=== PATIENT | female | born 1950 | race Caucasian/White ===

== ENCOUNTER → 2017-02-07 | Outpatient (CLI) | payer BC ==
[~2017-02-07] MED LIST: ADVIN25/60 INH; ANTICRE6 PO; CALC-51 PO; FLUT0.15 NAE; MELO7.5T5 PO; MONT1TAB5 PO; OXYC-57 PO; PRAV20TA PO; PREDPOW63 PO; PRLSR20 PO
--- NOTE | 2017-02-07 12:49 | DIAGNOSTIC IMAGING REPORT ---
CT SINUSES WITH BRAIN LAB CT DOSE: 644.24 mGy.cm CLINICAL HISTORY: CHRONIC SINUSITIS TECHNIQUE: Helical images were acquired in the transverse plane. Coronal reformatted images were acquired. COMPARISON STUDY: None. FINDINGS: There is complete opacification of the left maxilla sinus. There is partial opacification of the right axilla sinus. There is complete opacification left sphenoid. There is fluid within the right sphenoid. Ethmoid air cells are nearly completely opacified. The frontal sinuses are hypoplastic. There is a Panorex and of multiple ethmoid air cells. There is erosion versus postsurgical change involving the medial oh of the maxilla sinuses. The ostiomeatal units are completely occluded bilaterally. The ethmoidal recesses occluded. The olfactory groove has a depth of 14 mm. IMPRESSION: Extensive pansinus disease with occlusion of the ostiomeatal units. There is secondary bony erosive change. Electronically signed by: Bon Ramirez M.D. 02/07/2017 12:46 PM Dictated Date/Time: 02/07/2017 12:37 PM
== END | disposition home or self-care (01) ==
LOC: C.CTS 11:53
PROVIDERS: ATTEND Otolaryngology
DX: J32.9 Chronic sinusitis, unspecified (principal)

== ENCOUNTER 2017-02-25 07:03 | Day surgery (SDC) | payer BC ==
[2017-02-22 08:29] VITALS: BMI 32.0
--- NOTE | 2017-02-22 08:58 | PAT Medication Instructions ---
Service Date February 22, 2017. Current Home Medication List Fluticasone Prop/Salmeterol (Advair Diskus 250/50 60 Dose), 1 PUFF INH QAM Fluticasone Propionate (Nasal) (Flonase Allergy Relief), 2 SPRAYS MARY QAM Meloxicam (Mobic), 15 MG PO HS Montelukast Sodium (Montelukast Sodium), 1 TAB PO HS Omeprazole (Prilosec), 20 MG PO HS Pravastatin (Pravachol ), 40 MG PO HS [Antibiotic], 1 TAB PO BID [Calcium], 600 MG PO HS [Prednisone], 1 DOSE PO UD Medication Instructions For Your Scheduled Surgery [Antibiotic], 1 TAB PO BID (to be completed prior to surgery) [Prednisone], 1 DOSE PO UD (to be completed prior to surgery) - Check with surgeon for instructions: Meloxicam (Mobic), 15 MG PO HS - Take the following medications the morning of surgery with a sip of water: Fluticasone Prop/Salmeterol (Advair Diskus 250/50 60 Dose), 1 PUFF INH QAM Fluticasone Propionate (Nasal) (Flonase Allergy Relief), 2 SPRAYS MARY QAM - Take the following medications as scheduled the night before surgery: [Calcium], 600 MG PO HS Pravastatin (Pravachol ), 40 MG PO HS Omeprazole (Prilosec), 20 MG PO HS Montelukast Sodium (Montelukast Sodium), 1 TAB PO HS If you have any questions please call us at [phone] (Edwina Garcia PA-C) or [phone] or [phone]
[2017-02-22 09:34] LABS: BASO % 0.4 %; BASO ABS # 0.05 K/uL (0-0.2); COMPLETE YES; EOS % 1.1 %; HEMATOCRIT 43.4 % (37-47); IG% 0.7 %; LYMPH ABS # 3.89 K/uL (1.2-3.4); MEAN CELL VOLUME 93.3 fL (80-100); MEAN CORPUSCULAR HEMOGLOBIN 30.1 pg (25-34); MEAN CORPUSCULAR HGB CONC 32.3 g/dl (32-36); MEAN PLATELET VOLUME 9.7 fL (7.4-10.4); MONO % 7.9 %; NEUT % 59.9 %; PLATELET COUNT 305 K/uL (130-400); RED BLOOD COUNT 4.65 M/uL (4.2-5.4); WHITE BLOOD COUNT 12.96 K/uL (4.8-10.8)
[2017-02-22 10:33] LABS: BUN/CREATININE RATIO 22.9 (10-20); CALCIUM 9.5 mg/dl (8.5-10.1); CREATININE 0.73 mg/dl (0.60-1.20); POTASSIUM 4.4 mmol/L (3.5-5.1)
--- NOTE | 2017-02-24 14:25 | History and Physical ---
History & Physical Date February 24, 2017. Chief Complaint nasal polyps History of Present Illness The patient is a 66 year old female with complaints of nasal polyposis, recurrent after 2 sinus surgeries in [place]. Additional History Hepatic Disease: No Endocrine Disorder: No Kidney Disease: No Hypertension: No Heart Disease: No Bleeding Tendencies: No Infectious Diseases: No Allergies Coded Allergies: Ibuprofen (Verified Allergy, Unknown, ITCHING UNDER SKIN LIZETTE HANDS, 02/22/17 ) Atorvastatin (Verified Adverse Reaction, Unknown, MUSCLE ACHES, 02/23/17) Home Medications Scheduled Fluticasone Prop/Salmeterol (Advair Diskus 250/50 60 Dose), 1 PUFF INH QAM Fluticasone Propionate (Nasal) (Flonase Allergy Relief), 2 SPRAYS MARY QAM Meloxicam (Mobic), 15 MG PO HS Montelukast Sodium (Montelukast Sodium), 1 TAB PO HS Omeprazole (Prilosec), 20 MG PO HS Pravastatin (Pravachol ), 40 MG PO HS [Antibiotic], 1 TAB PO BID [Calcium], 600 MG PO HS [Prednisone], 1 DOSE PO UD Physical Examination Skin: warm/dry, no rash Eyes: normal inspection, EOMI, sclerae normal ENT: normal ENT inspection, pharynx normal Head: normocephalic, atraumatic Neck: supple, no adenopathy, trachea midline Respiratory/Chest: lungs clear, normal breath sounds, no respiratory distress Cardiovascular: regular rate, rhythm, no edema, no murmur Abdomen / GI: normal bowel sounds, non tender Back: normal inspection Extremities: normal inspection, normal range of motion Neurologic/Psych: no motor/sensory deficits, alert, normal reflexes, oriented x 3 Diagnosis chronic sinusitis/polyposis Plan of Treatment endoscopic sinus surgery
[~2017-02-25] VITALS: Ht 157.5 cm; Wt 80.1 kg
[~2017-02-25 07:03] MED LIST changes: +CEFAZOLIN 2000 MG/60 ML D5W IV SCH; +LACTATED RINGER'S 1000ML 1,000 ML IV SCH; -OXYC-57 PO
--- NOTE | 2017-02-25 07:12 | History & Physical Bridge Note ---
H&P Re-Evaluation Bridge Note: I have examined the patient, reviewed the History & Physical and in the interval since the performance of the History & Physical I have noted the following changes of clinical significance: No changes noted
[2017-02-25 07:17] VITALS: BP 148/68; PULSE 74; TEMP 36.6; O2SAT 96; Ht 157.5 cm; Wt 80.1 kg
[2017-02-25] MEDS ORDERED: LIDOCAINE HCL 2% 2 ML VIAL (20MG/ML) ONE (07:40)
[2017-02-25] MEDS ORDERED: ALBUTEROL HFA INHALER 8.5 GM INH ONE (07:40)
[2017-02-25] MEDS ORDERED: MIDAZOLAM HCL 1 MG/ML 2ML VIAL ONE (07:41)
[2017-02-25] MEDS ORDERED: FENTANYL CITRATE INJ 50 MCG/1 ML 2 ML VIAL ONE ×2 (07:41→11:18)
[2017-02-25] MEDS: OXYMETAZOLINE HCL 0.05% NA SPR 15 ML BTL SCH ×2 (08:29→10:22)
[2017-02-25] MEDS ORDERED: LIDO 2%/EPINEPHRINE 1:100000 20 ML VIAL INFIL ONE (08:34)
[2017-02-25] MEDS ORDERED: SODIUM CHLORIDE 0.9% 1000ML 1,000 ML IV SCH (08:43)
[2017-02-25] MEDS ORDERED: OXYC-57 PO (08:44)
[2017-02-25] MEDS ORDERED: OXYCODONE/ACETAMINOPHEN 5-325 TAB PO PRN ×2 (08:45)
--- NOTE | 2017-02-25 08:45 | Discharge Instructions-SurgCtr ---
Discharge Instructions Date of Service February 25, 2017. Visit Reason for Visit: Chronic Sinusitis, Polyposis Discharge Discharge Diagnosis / Problem: same Discharge Goals Goal(s): Improve function Activity Recommendations Activity Limitations: resume your previous activity Anesthesia . Post Anesthesia Instructions: If you have had General Anesthesia or IV Sedation: * Do not drive today. * Resume driving when surgeon permits. * Do not make important decisions or sign legal documents today. * Call surgeon for: 1. Temperature elevations greater than 101 degrees F. 2. Uncontrollable pain. 3. Excessive bleeding. 4. Persistent nausea and vomiting. 5. Medication intolerance (nausea, vomiting or rash). * For nausea and vomiting use only clear liquids such as: tea, soda, bouillon until nausea subsides, then gradually increase diet as tolerated. * If you have any concerns or questions, call your surgeon's office. If physician is unavailable and it is an emergency, call 911 or go to the nearest emergency room. . Instructions / Follow-Up Instructions / Follow-Up ACTIVITY RECOMMENDATIONS: * Being up and around is good, but no strenuous activity, heavy lifting or physical exertion for one week. * Keep your head elevated 30 degrees when lying down or sleeping. * Do not blow your nose for 48 hours, sniff back instead. * Avoid hot showers. OVER THE COUNTER MEDICATIONS: * You may use Tylenol * Avoid aspirin or aspirin containing products, e.g. as they may increase bleeding. SPECIAL CARE INSTRUCTIONS: * Expect to have bloody drainage from your nose and/or down your throat for one to three days. Change drip pad as needed. * Begin irrigating your nose with saline solution today, at least six to ten times per day and sniff back to help remove old clots or crust. * You may experience nasal and facial congestion, pain and pressure, this is normal. * Please call with any significant and/or progressive pain, redness, swelling around the eyes, visual changes, fever of 101.5 degrees F, active bleeding or any problems or concerns. * If active bleeding occurs, spray the nose three times at one minute intervals with Afrin spray and call or cell phone: . If unable to reach the doctor, go to the nearest Emergency Department. Special Diet: * Avoid extremely hot fluids. FOLLOW UP VISIT: Follow-up Visit with Dr. Skinner If not already scheduled, please call to schedule. Diet Recommendations Home Diet: no limitations Pending Studies Studies pending at discharge: no Medical Emergencies . Who to Call and When: Medical Emergencies: If at any time you feel your situation is an emergency, please call 911 immediately. . Non-Emergent Contact Non-Emergency issues call your: Primary Care Provider . . "Provider Documentation" section prepared by Rosa Skinner. . [place] Drug Monitoring Program Search Results: no issues identified
[2017-02-25] MEDS ORDERED: EpINEphrine INJ 1MG/ML AMP 1 MG/ML AMP ONE (08:58)
[2017-02-25] MEDS ORDERED: LIDOCAINE 4% W/AFRIN NASAL SOLN 4ML ONE (08:58)
[2017-02-25] MEDS ORDERED: TRIAMCINOLONE ACET 40 MG/ML VIAL ONE (08:59)
[2017-02-25] MEDS ORDERED: MEPERIDINE HCL 25 MG/ML CARP IV PRN (09:45)
[2017-02-25] MEDS ORDERED: FENTANYL CITRATE INJ 50 MCG/1 ML 2 ML VIAL IV PRN (09:45)
[2017-02-25] MEDS ORDERED: EpHEDrine SULFATE INJ 50 MG/ML AMP IV PRN (09:45)
[2017-02-25] MEDS ORDERED: ONDANSETRON INJ 2 MG/ML 2 ML VIAL IV PRN (09:45)
[2017-02-25] MEDS ORDERED: ATROPINE SULFATE 0.1 MG/ML 5ML SYR IV PRN (09:45)
[2017-02-25] MEDS ORDERED: LABETALOL HCL IV 5 MG/ML 20ML IV PRN (09:45)
[2017-02-25] MEDS ORDERED: HYDROmorphone INJ 1 MG/ML SYR IV PRN (09:45)
--- NOTE | 2017-02-25 11:13 | Anesthesiology Progress Note ---
Anesthesia Post Op Note Date & Time February 25, 2017 at 11:12 Vital Signs Pain Intensity: 0 Vital Signs Past 12 Hours Date Time Temp Pulse Resp B/P Pulse Ox O2 Delivery O2 Flow Rate FiO2 02/25/17 11:05 81 18 157/89 98 Nasal Cannula 3 02/25/17 10:55 80 18 158/76 98 Nasal Cannula 3 02/25/17 10:45 84 18 165/90 98 Mask 10 02/25/17 10:35 36.2 85 18 167/89 98 Mask 10 02/25/17 07:17 36.6 74 20 148/68 96 Room Air Notes Mental Status: alert / awake / arousable, participated in evaluation Pt Amnestic to Procedure: Yes Nausea / Vomiting: adequately controlled Pain: adequately controlled Airway Patency, RR, SpO2: stable & adequate BP & HR: stable & adequate Hydration State: stable & adequate Anesthetic Complications: no major complications apparent
[2017-02-25] MEDS ORDERED: DEXAMETHASONE SOD INJ 4 MG/ML VIAL ONE (11:17)
[2017-02-25] MEDS ORDERED: PHENYLEPHRINE 100MCG/ML 5ML SYR ONE (11:17)
[2017-02-25] MEDS ORDERED: ONDANSETRON INJ 2 MG/ML 2 ML VIAL ONE (11:17)
[2017-02-25 11:25] VITALS: BP 120/64; PULSE 79; TEMP 37.1; O2SAT 97
--- NOTE | 2017-02-25 11:40 | OPERATIVE REPORT ---
DATE OF OPERATION: 02/25/2017 PREOPERATIVE DIAGNOSIS: Chronic sinusitis and nasal polyposis. POSTOPERATIVE DIAGNOSIS: Same. PROCEDURE: Right and left frontal, right and left sphenoid, right and left total ethmoid and right and left maxillary sinus antrostomies. SURGEON: Dr. Skinner. ANESTHESIA: General LMA. COMPLICATIONS: None. BLOOD LOSS: 100 mL. HISTORY OF PRESENT ILLNESS: A 66-year-old lady with significant recurrent and chronic sinusitis with nasal polyposis. She previously had 2 surgeries in [place], but again developed polyps blocking her nasal passages and chronic sinus infections all winter. OPERATION AND FINDINGS: PROCEDURE: The patient brought to the operating room and the supine position. General anesthesia was induced, prepped with Betadine paint and draped in usual sterile manner. Nose decongested using topical cottonoids with a solution of 4 mL of 4% Xylocaine mixed with 1 mL of epinephrine. Injection of 2% Xylocaine with 1:100,000 strength epinephrine was also used. The [employer] device was calibrated and used for the entire procedure. The left sphenoid was cannulated with guidewire and dilated using the 6 mm balloon with [employer] computer guidance. The left maxillary sinus was irrigated clean with saline. The right sphenoid was opened up in a similar manner with the balloon; however, there were still polyps covering the anterior face of the sphenoid. At this point the shaver coupled with [employer] device was used. [employer] was used continuously due to previous turbinate resection destroying the landmarks. Resection was started on the right side. The entire nasal cavity was filled with polyps. The [employer] was followed up to the previously cauterized nasofrontal duct and the frontal sinus area opening up the frontal sinus by removing polyps from the nasal frontal duct area. There was still multiple residual posterior ethmoid air cells all filled with polyps. These had to be opened up individually with [employer] computer guidance and then connected into 1 common ethmoid cavity opening up the nasofrontal duct and then the anterior and then the posterior ethmoid air cells. The maxillary sinus also had polyps in it which were removed for biopsy and opened up. She previously had right maxillary antrostomy. The sphenoid was closed over with polyps and scar tissue even after dilation, therefore the sphenoid was opened up superiorly and laterally using the shaver coupled with the [employer] device and suctioned clean. A Propel stent was placed, 1 in the nasofrontal duct, one in the sphenoid. Attention was turned to the left side where frontal sinusotomy, total ethmoidectomy, maxillary sinus antrostomy and sphenoidotomy was performed in similar manner. The Propel stents were placed also on the left side. The patient tolerated the procedure well and was taken to recovery area in satisfactory condition. I attest to the content of the Intraoperative Record and any orders documented therein. Any exceptio ns are noted below.
[2017-02-25 11:53] VITALS: BP 147/75; PULSE 73; O2SAT 96
[2017-02-25 12:25] VITALS: BP 143/81; PULSE 72; TEMP 36.3; O2SAT 94
== END 2017-02-25 12:35 | disposition home or self-care (01) ==
LOC: C.ACU 07:03
PROVIDERS: ATTEND Otolaryngology
DX: J32.9 Chronic sinusitis, unspecified (principal); J33.9 Nasal polyp, unspecified; J45.909 Unspecified asthma, uncomplicated; I10 Essential (primary) hypertension; E66.9 Obesity, unspecified; Z98.890 Other specified postprocedural states; Z68.32 Body mass index [BMI] 32.0-32.9, adult; Z96.651 Presence of right artificial knee joint; M19.90 Unspecified osteoarthritis, unspecified site

== ENCOUNTER 2024-05-14 05:03 | Observation (INO) ==
--- NOTE | 2024-04-18 11:03 | PAT Medication Instructions ---
Medication Instructions Date of Service April 18, 2024 Home Medications Medication Instructions Recorded nitroglycerin 0.4 mg sublingual 0.4 mg sublingual Q5M PRN chest 05/25/23 tablet pain #20 tabs aspirin 81 mg tablet,delayed 81 mg PO DAILY #30 tabs 06/30/23 release verapamil 180 mg 24 hr 360 mg (2 x 180 mg) PO DAILY #180 09/19/23 capsule,extended release caps biotin 5,000 mcg disintegrating tablet 5,000 mcg PO DAILY fluticasone propionate 50 mcg/actuation nasal spray,suspension 2 spray intranasal QAM folic acid 800 mcg tablet 0.8 mg PO DAILY magnesium 250 mg tablet 250 mg PO DAILY milk thistle 1 tab PO DAILY montelukast 10 mg tablet (Singulair) 10 mg PO QPM nitroglycerin 0.4 mg sublingual tablet 0.4 mg sublingual Q5M PRN omega-3 fatty acids [Fish Oil] 1 tab PO DAILY omeprazole 20 mg capsule,delayed release 20 mg PO HS pravastatin 20 mg tablet 20 mg PO HS aspirin 81 mg tablet,delayed release 81 mg PO DAILY verapamil 180 mg 24 hr capsule,extended release 360 mg (2 x 180 mg) PO DAILY fluticasone 250 mcg-salmeterol 50 mcg/dose blistr powdr for inhalation (Wixela Inhub) 1 inh inhalation QAM Continue as directed verapamil 180 mg 24 hr capsule,extended release 360 mg (2 x 180 mg) PO DAILY nitroglycerin 0.4 mg sublingual tablet 0.4 mg sublingual Q5M(if needed) ASK your prescriber and surgeon aspirin 81 mg tablet,delayed release 81 mg PO DAILY STOP taking 2 weeks before surgery (or as soon as possible if surgery is within 2 weeks) biotin 5,000 mcg disintegrating tablet 5,000 mcg PO DAILY milk thistle 1 tab PO DAILY omega-3 fatty acids [Fish Oil] 1 tab PO DAILY DO NOT take the morning of surgery folic acid 800 mcg tablet 0.8 mg PO DAILY magnesium 250 mg tablet 250 mg PO DAILY Take morning of surgery With a small sip of water, OTHERWISE NOTHING TO EAT OR DRINK AFTER MIDNIGHT: fluticasone propionate 50 mcg/actuation nasal spray,suspension 2 spray intranasal QAM fluticasone 250 mcg-salmeterol 50 mcg/dose blistr powdr for inhalation (W[employer]ela Inhub) 1 inh inhalation QAM Take evening before surgery montelukast 10 mg tablet (Singulair) 10 mg PO QPM omeprazole 20 mg capsule,delayed release 20 mg PO HS pravastatin 20 mg tablet 20 mg PO HS Other Notes If you have any questions please call us at [phone] or [phone] or [phone] or [phone]
--- NOTE | 2024-04-25 12:02 | Anesthesiology Consultation ---
Date of Service April 25, 2024 Assessment & Plan (1) Encounter for pre-operative examination: - workload note sent to [facility] regarding increase in frequency of episodes of left chest and arm discomfort with eating and occasionally with activity since seeing cardiology 08/2023. Patient states episodes have been ongoing for years-denies change in nature of episodes-states cardiology is aware of recent increase and was advised to keep follow-up appointment as scheduled for Tuesday04/30/24. She denies symptoms in clinic-states feels at her baseline. Patient was advised she will need [facility]ology clearance prior to surgery. She was instructed to call 911 if recurrence/change in symptoms. Patient and her verbalized understanding and denied questions or concerns. Fadi Collins PA-C made aware of episodes today and advised he will evaluate patient as scheduled 04/30/24. Surgeon's office made aware. - Outpatient joint assessment: Patient is currently scheduled for inpatient pathway. If re-evaluated and patient/surgeon requests outpatient pathway, patient is not recommended candidate for outpatient joint program from anesthesia standpoint. Chart Review Chart Review: Pending: Refer to Additional Notes / Consult section and Patient seen in Pre Admission Testing Teaching & Discussion Pre-Anesthesia Teaching/Discussion Notes: Instructed NPO after midnight before surgery, except medications with 15 cc of water. Medication instructions provided according to the PAT guidelines. History Surgery Operation Date: 05/14/24 09:20 Proposed Procedures p Left Anterior Total Hip Arthroplasty - Pardeep Haney, Height/Weight Height: 5 ft 1.75 in Weight: 74 kg Allergies Allergy/AdvReac Type Severity Reaction Status Date / Time ibuprofen Allergy Unknown ITCHING Verified 08/30/23 15:42 UNDER SKIN LIZETTE HANDS atorvastatin AdvReac Unknown MUSCLE Verified 08/30/23 15:42 ACHES Medications Home Medications Medication Instructions Recorded Confirmed Last Taken biotin 5,000 mcg disintegrating 5,000 mcg PO DAILY 05/25/23 04/12/24 06/28/23 tablet fluticasone propionate 50 2 spray intranasal QAM 05/25/23 04/12/24 06/28/23 mcg/actuation nasal spray,suspension folic acid 800 mcg tablet 0.8 mg PO DAILY 05/25/23 04/12/24 06/28/23 magnesium 250 mg tablet 250 mg PO DAILY 05/25/23 04/12/24 06/28/23 milk thistle 1 tab PO DAILY 05/25/23 04/12/24 Unknown montelukast 10 mg tablet 10 mg PO QPM 05/25/23 04/12/24 06/28/23 (Singulair) nitroglycerin 0.4 mg sublingual 0.4 mg sublingual Q5M PRN chest 05/25/23 04/12/24 Unknown tablet pain #20 tabs omega-3 fatty acids [Fish Oil] 1 tab PO DAILY 05/25/23 04/12/24 Unknown omeprazole 20 mg capsule,delayed 20 mg PO HS 05/25/23 04/12/24 06/28/23 release pravastatin 20 mg tablet 20 mg PO HS 05/25/23 04/12/24 06/28/23 aspirin 81 mg tablet,delayed 81 mg PO DAILY #30 tabs 06/30/23 04/12/24 Unknown release verapamil 180 mg 24 hr 360 mg (2 x 180 mg) PO DAILY #180 09/19/23 04/12/24 Unknown capsule,extended release caps fluticasone 250 mcg-salmeterol 50 1 inh inhalation QAM 04/12/24 04/12/24 Unknown mcg/dose blistr powdr for inhalation (Wixela Inhub) Past Medical History Medical History (Updated 04/25/24 @ 14:19 by Latoya Page PA-C) Asthma well controlled w/ daily inhaler-last rescue inhaler use several months ago CAD (coronary artery disease) follows with [facility] Cardiac syndrome X follows with [facility] Fatty liver GERD (gastroesophageal reflux disease) controlled, stable per pt History of COVID-19 (2021) no hosp; resolved Hx of angina pectoris (2022) hx-prior to card cath -- while walking, has never had to use nitro Hypercholesteremia Osteoarthritis Patient denies h/o stroke, seizures, heart attack, heart failure, DM, HTN, blood clots/DVTs or blood transfusions. Exercise / Class Metabolic Activity II 4-5 Yardwork/Stairs/Walk up hill (patient reports intermittent left sided chest discomfort and left arm after eating and occasionally with activity-denies symptoms today or dyspnea-patient and her state cardiology is aware and she has upcoming routine appointment with their office-denies taking nitroglycerin) Past Surgical History Surgical History History of carpal tunnel release of both wrists History of knee replacement right Hx of bilateral oophorectomy Hx of cardiac catheterization no stents Hx of hand surgery x 2 right Hx of sinus surgery x 3 Past Anesthesia History No Hx of Anesthesia Complications and No Family Hx of Anesthesia Complications History of PONV No Hx of PONV and No Hx of Motion Sickness Social History Smoking Status: Never smoker Do You Dip or Chew Tobacco: No Hx Alcohol Use: Yes Alcohol type: beer and wine alcohol intake frequency: a few times a month Hx Substance Use: No substance use type: does not use Review of Systems Patient denies shortness of breath, dyspnea on exertion, snoring, witnessed ap neas, fever, chills, cough, wheezing, or palpitations. Physical Exam Vital Signs Vitals BP 117/22 P 76 TEMP 98.3 SP02 94% on RA RESP 18 Physical Patient resting comfortably in chair in no acute distress, alert and oriented, responding appropriately throughout visit Full cervical extension range of motion without pain TMD 3.5 finger breadths Mallampati Score 3, small oral opening Dentition: several crowns, denies chipped or loose teeth, caps, implants or brid ges Lungs: normal respiratory effort. Good air movement, clear throughout to auscultation, no adventitious breath sounds Cardiac: regular rate and rhythm, no murmurs noted Carotid arteries: negative bruit bilat Lab Results Anesthesia Preop Results Results Anesthesia Widget: WBC 7.08 K/ul (4.8-10.8) 04/25/24 Hgb 12.9 g/dl (12.0-16.0) 04/25/24 Hct 40.3 % (37.0-47.0) 04/25/24 Plt 212 K/uL (130-400) 04/25/24 Na 138 mmol/L (136-145) 04/25/24 K 3.9 mmol/L (3.5-5.1) 04/25/24 Cl 102 mmol/L (98-107) 04/25/24 CO2 26 mmol/L (21-32) 04/25/24 BUN 21 mg/dl (6-23) 04/25/24 Creat 0.87 mg/dl (0.6-1.2) 04/25/24 Glucose Level 100 mg/dl (70-99(Fasting)) H 04/25/24 PT 10.4 Seconds (9.0-12.0) 04/25/24 PTT 24 Seconds (21-31) 04/25/24 INR 1.0 (0.9-1.1) 04/25/24 Blood Type O Negative 04/25/24 Antibody Screen NEGATIVE 04/25/24 Testing Electrocardiogram Date: 05/25/23 NSR, rate 69 bpm Chest X-Ray Date: 04/25/24 No active disease in the chest. Stress Test Date: 02/11/23 METS 7 MPHR 97% Normal myocardial perfusion imaging No LV regional wall motion abnormalities Cardiac Catheterization Date: 06/30/23 LM -medium caliber, luminal irregularities LAD -medium caliber, calcified, 30 to 40% proximal to mid disease, focal 40 to 50% stenosis after takeoff of D3. Remainder of vessel without significant disease and wraps around apex. Small D1 70% ostial. Very small D2 with 70% pr oximal disease. Horizontal D3 with no significant disease. Circumflex -medium caliber, 30% proximal stenosis in medium OM 2. RCA -dominant, medium caliber, 20% ostial, 20 to 30% mid segment stenosis. Distal vessel, small RPDA and RPLB without significant disease 1. Mild to moderate nonobstructive CAD in major epicardial vessels -35% proximal to mid LAD, focal 45% mid stenosis at takeoff of D3 30% large OM 2 25% mid RCA 2. Severe small branch vessel disease 70% ostial D1, 70% proximal very small D2
--- NOTE | 2024-05-09 17:12 | History & Physical Report ---
Date of Service May 09, 2024 Assessment & Plan (1) Osteoarthritis of left hip: We will proceed with a left anterior total of arthroplasty. Postoperatively she will be started on aspirin for DVT prophylaxis and kept overnight in the hospital for postop medical management. She plans to have the hospital set up home health for discharge. History of Present Illness Chief Complaint: Osteoarthritis of the left hip. Primary Care Provider: Manoj Gaspar is a pleasant 73-year-old female who I saw a year ago for a right hamstring strain. She is better from that. Unfortunately, she has been dealing with chronic increasing left hip pain. She has pain when she is up and standing. She has pain getting in and out of a car. All of her pain is located in her groin and over the lateral aspect of her hip. X-rays and clinical examination been diagnostic for advanced osteoarthritis of the left hip. After failing conservative treatment, she has elected proceed with a left total hip arthroplasty. Allergies Allergy/AdvReac Type Severity Reaction Status Date / Time ibuprofen Allergy Unknown ITCHING Verified 04/30/24 09:52 UNDER SKIN LIEZTTE HANDS atorvastatin AdvReac Unknown MUSCLE Verified 04/30/24 09:52 ACHES Home Medications Medication Instructions Recorded Confirmed Type biotin 5,000 mcg disintegrating 5,000 mcg PO DAILY 05/25/23 04/30/24 History tablet fluticasone propionate 50 2 spray intranasal QAM 05/25/23 04/30/24 History mcg/actuation nasal spray,suspension folic acid 800 mcg tablet 0.8 mg PO DAILY 05/25/23 04/30/24 History magnesium 250 mg tablet 250 mg PO DAILY 05/25/23 04/30/24 History milk thistle 1 tab PO DAILY 05/25/23 04/30/24 History montelukast 10 mg tablet 10 mg PO QPM 05/25/23 04/30/24 History (Singulair) nitroglycerin 0.4 mg sublingual 0.4 mg sublingual Q5M PRN chest 05/25/23 04/30/24 Rx tablet pain #20 tabs omega-3 fatty acids [Fish Oil] 1 tab PO DAILY 05/25/23 04/30/24 History omeprazole 20 mg capsule,delayed 20 mg PO HS 05/25/23 04/30/24 History release pravastatin 20 mg tablet 20 mg PO HS 05/25/23 04/30/24 History aspirin 81 mg tablet,delayed 81 mg PO DAILY #30 tabs 06/30/23 04/30/24 Rx release verapamil 180 mg 24 hr 360 mg (2 x 180 mg) PO DAILY #180 09/19/23 04/30/24 Rx capsule,extended release caps fluticasone 250 mcg-salmeterol 50 1 inh inhalation QAM 04/12/24 04/30/24 History mcg/dose blistr powdr for inhalation (Wixela Inhub) verapamil 120 mg 24 hr 120 mg PO DAILY #90 caps 04/30/24 04/30/24 Rx capsule,extended release Past Med/Surg History Problem List Cardiac syndrome X follows with [facility] Encounter for pre-operative examination Osteoarthritis of left hip CAD (coronary artery disease) Right hamstring muscle strain 06/01/23 Family history of coronary artery disease Hypercholesterolemia Angina pectoris 05/25/23 Greater trochanteric bursitis of right hip Medical History Hypercholesteremia Fatty liver History of COVID-19 (2021) no hosp; resolved Hx of angina pectoris (2022) hx-prior to card cath -- while walking, has never had to use nitro GERD (gastroesophageal reflux disease) controlled, stable per pt Asthma well controlled w/ daily inhaler-last rescue inhaler use several months ago Osteoarthritis CAD (coronary artery disease) follows with [facility] Surgical History Hx of hand surgery x 2 right Hx of sinus surgery x 3 History of knee replacement right History of carpal tunnel release of both wrists Hx of bilateral oophorectomy Hx of cardiac catheterization no stents Social History Smoking Status: Never smoker Second Hand Exposure: No; Do You Dip or Chew Tobacco: No; Tobacco Cessation Education Requested by Patient: No Hx Alcohol Use: Yes Alcohol type: beer and wine Hx Substance Use: No Preferred Language: Moldovan Communication Ability: Effective Diamond Sizer And Grader Required: No Beliefs That Will Affect Care: None Current Living Situation: Spouse Other Information That Helps Us Care for You: No Feels Safe at Home: Yes Safety Concerns: Feels Safe At This Time Assistive Devices: None Review of Systems All systems reviewed & are unremarkable except as noted in HPI & below. Physical Exam On physical examination of the left hip, she has decreased range of motion. She has pain with forced internal and external rotation. Most of her pain is located in the groin.. Constitutional WD/WN, vitals as above Eyes PERRL, conjunctivae normal, anicteric sclerae ENMT external ear and nose normal, oropharynx normal Neck trachea midline, no thyromegaly Respiratory normal respiratory effort Cardiovascular RRR, no murmur, no edema Gastrointestinal (Abdomen) normal bowel sounds, soft, nontender, no hepatosplenomegaly Psychiatric A+Ox3, euthymic affect Results & Data Results & Data Laboratory Results . Diagnostic Findings X-rays of the left hip show advanced osteoarthritis with joint space narrowing, osteophyte formation, and [id number] articulation. PG Care Time/CCT Total # of Minutes Spent Total Time Spent with Patient: Total time spent is greater than 50% in coordination of care (as documented) at patient's floor/unit and/or counseling patient: Coding Level of Care Code None Diagnoses Osteoarthritis of left hip M16.12
[2024-05-14] MEDS: LR 60ML/HR IV SCH (05:36)
[2024-05-14] MEDS: LR 500ML BOLUS, THEN 15ML/HR IV SCH (05:38)
[2024-05-14] MEDS: ACETAMINOPHEN 500 MG TAB PO SCH ×2 (05:57→14:16)
[2024-05-14] MEDS: dexAMETHasone**PF** 10 MG/ML VIAL IV SCH (05:57)
[2024-05-14] MEDS: GABAPENTIN 300 MG CAP PO SCH (05:57)
[2024-05-14] MEDS: FAMOTIDINE 20 MG TAB PO SCH (05:57)
[2024-05-14] MEDS ORDERED: fentaNYL citrate PF 100 MCG/2 ML VIAL ONE (06:25)
[2024-05-14] MEDS ORDERED: MIDAZOLAM HCL 1 MG/ML 2ML VIAL ONE ×2 (06:25)
[2024-05-14] MEDS ORDERED: PROPOFOL IV EMULSION 10 MG/ML 20 ML VIAL IV ONE (06:26)
[2024-05-14] MEDS ORDERED: ONDANSETRON INJ 2 MG/ML 2 ML VIAL ONE (06:26)
[2024-05-14] MEDS ORDERED: LIDOCAINE 2% 2 ML VIAL/AMP(20MG/ML) INFIL ONE ×2 (06:26)
[2024-05-14] MEDS ORDERED: ROPIVACAINE 0.5% 5 MG/ML 30 ML VIAL ONE (06:34)
--- NOTE | 2024-05-14 06:38 | History & Physical Bridge Note ---
Date of Service May 14, 2024 History & Physical Bridge Note I have examined the patient, reviewed the History & Physical and in the interval since the performance of the History & Physical I have noted the following changes of clinical significance: no changes noted
[2024-05-14] MEDS ORDERED: ONDANSETRON INJ 2 MG/ML 2 ML VIAL IV PRN ×2 (06:41→09:59)
[2024-05-14] MEDS ORDERED: ATROPINE SULFATE 0.1 MG/ML 10ML SYR IV PRN (06:41)
[2024-05-14] MEDS ORDERED: ePHEDrine sulfate 50 MG/ML AMP IV PRN (06:41)
[2024-05-14] MEDS ORDERED: HYDROmorphone INJ 1 MG/ML SYRINGE IV PRN (06:41)
[2024-05-14] MEDS: TRANEXAMIC ACID 1,000 MG **IV Pre-op IV SCH (06:45)
[2024-05-14] MEDS: ceFAZolin 2000MG 2,000 MG/15 ML SYR IV SCH ×2 (06:58→14:16)
[2024-05-14] MEDS ORDERED: PHENYLEPHRINE 100MCG/ML 10ML SYR IV ONE (07:17)
[2024-05-14] MEDS: ORTHO JOINT ANESTHETIC ONE (07:43)
[2024-05-14] MEDS: ROPIV 0.5% 246mg, Ketorolac 30mg, EPINEPHrine 0.5mg in NSS INFIL SCH (07:43)
[2024-05-14] MEDS: TRANEXAMIC ACID 1,000 MG **IV Intra-op IV SCH (07:50)
--- NOTE | 2024-05-14 07:58 | Operative Report ---
PG Post Operative Report Pre & Post Diagnosis Operation Date: 05/14/24 07:00 Pre-Op Diagnosis: Left Hip Degenerative Joint Disease Post-Op Diagnosis: Left Hip Degenerative Joint Disease I identified the patient and participated in the time-out.: Yes Procedure Operation Date: 05/14/24 07:00 Actual Procedures p Left Anterior Total Hip Arthroplasty(Left) - Pardeep Haney DO Surgeon Pardeep Haney DO Stock Dealer Pardeep Welsh PA-C Estimated Blood Loss 100 Findings Consistent with Post-Op Diagnosis Specimens Left femoral head Description of Procedure Implants used I used a ZimmerBiomet total hip arthroplasty system with a size 1 standard Avenir Complete stem, a 48 mm G7 cup with a 25mm screw, an E1 polyethylene liner , a 32 mm ceramic head with a 0 neck. Chasity arrived at the hospital for the above procedure. She was seen in the preoperative holding area and the operative extremity was identified and signed. She was given a spinal anesthetic, a preoperative antibiotic, and TXA. She was then taken back to the operating room and laid on the table in the supine position. She was given basic sedation. The operative leg was secured to a Puristst leg positioner. The hip was then prepped and draped in sterile fashion. A timeout was done and the patient and the operative extremity was properly identified. An anterior approach was used. Dissection was taken down through the fascia and the tensor muscle belly was retracted laterally and the rectus was retracted medially. The circumflex vessels were identified and ligated. The capsule was then incised and tagged for later repair. The femoral neck was then cut and the femoral head was removed. The acetabulum was exposed. Time was spent doing a complete circumferential labral release. Sequential reaming of the acetabulum up to a size 47 reamer was done. Final reamings were done under fluoroscopy to ensure appropriate version. A Biomet 48 mm G7 cup was then impacted into place. A single 25 mm screw was placed. The E1 polyethylene liner was then snapped into place. Surrounding soft tissues were then injected with 100 cc of an orthopedic pain control cocktail. The proximal femur was then exposed. Sequential broaching up to a size 1 broach was done. Off that broach a size 32 head with a 0 neck was trialed. The hip was reduced and fluoroscopic images showed anatomic alignment of the implants in acceptable length. The broach was removed. The final size 1 standard offset Avenir Complete stem was then impacted into place. A ceramic 32 mm head with a 0 neck was then impacted onto the stem and the hip was reduced. Final fluoroscopic images showed anatomic alignment of the hip. The capsule was then closed with #1 Vicryl suture. A dilute betadyne lavage was then done for 3 minutes. The joint was then irrigated with normal saline solution. The fascia was closed with #1 PDS suture. Skin was closed with 2-0 Vicryl, russel, and a Silverlon dressing. She was then transferred to a hospital bed and taken to the post anesthesia care unit in stable condition. She tolerated the procedure well. Pardeep Welsh PA-C, was present for the entire procedure. He was critical for patient positioning, prepping, draping, retraction exposure, wound closure and application of sterile dressing. I attest to the content of the Intraoperative Record and any orders documented therein. Any exceptions are noted below.
--- NOTE | 2024-05-14 08:52 | Fluoroscopy Report ---
FL hip LT 1V CLINICAL HISTORY: LT ANTERIOR THAleft hip arthroplasty COMPARISON STUDY: Radiographs of the pelvis and left hip of same day FLUOROSCOPY TIME: 9.5 seconds FLUOROSCOPY IMAGES: 1 EXPOSURE DOSE: 1.0057 mGy FINDINGS: Left hip arthroplasty demonstrates satisfactory alignment. No acute fracture, dislocation o r unexpected opaque foreign body. IMPRESSION: Fluoroscopic assistance as above. ACT 112: Negative or not required by law. Electronically signed by: Horacio Berry M.D. 05/14/2024 8:51 AM
--- NOTE | 2024-05-14 09:02 | XRay Report ---
XR hip 1V LT w pelvis HISTORY: 74 years-old Female IN PACU - Post Surgical left hip arthroplasty COMPARISON: 02/29/2024 TECHNIQUE: AP view of the pelvis with crosstable lateral view of the left hip FINDINGS: Mild osteoarthritis of the right hip. Satisfactory alignment of the left hip arthroplasty. Lateral sk in russel with expected postoperative soft tissue swelling and deep tissue air. No acute fracture or unexpected opaque foreign body. IMPRESSION: Satisfactory alignment of the left hip arthroplasty. ACT 112: Negative or not required by law. The above report was generated using voice recognition software. It may contain grammatical, syntax o r spelling errors. Electronically signed by: Horacio Berry M.D. 05/14/2024 9:01 AM
[2024-05-14] MEDS ORDERED: oxyCODONE HCL IR 5 MG TAB (IMMEDIATE RELEASE) PO PRN (09:59)
[2024-05-14] MEDS ORDERED: bisacodyL 10 MG SUPP PR PRN (09:59)
[2024-05-14] MEDS ORDERED: MAGNESIUM HYDROXIDE SUSP 30 ML UDC PO PRN (09:59)
[2024-05-14] MEDS ORDERED: NALOXONE HCL 0.4 MG/1 ML VIAL/CARP IV PRN (09:59)
[2024-05-14] MEDS ORDERED: HYDROmorphone INJ 0.5 MG/0.5 ML SYR IV PRN (09:59)
[2024-05-14] MEDS ORDERED: METOCLOPRAMIDE HCL INJ 5 MG/ML 2 ML VIAL IV PRN (09:59)
[2024-05-14] MEDS ORDERED: NITROGLYCERIN SL 0.4 MG/TAB TAB SL PRN (09:59)
[2024-05-14] MEDS: SODIUM CHLORIDE 0.9% 1,000 ML IV SCH (10:29)
[2024-05-14] MEDS: FLUTICASONE PROPIONATE NA SPR 16 GM BTL SCH (10:30)
--- NOTE | 2024-05-14 11:19 | Anesthesiology Progress Note ---
Date of Service May 14, 2024 Anesthesia Post Procedure Vital Signs Vital Signs: Temp Pulse Pulse Resp BP Pulse Ox O2 Del Method 05/14/24 10:38 36.4 C 68 16 106/62 97 Nasal Cannula 05/14/24 10:08 36.3 C L 72 16 108/67 95 Nasal Cannula 05/14/24 09:40 Nasal Cannula 05/14/24 09:40 36.9 C 70 18 110/57 L 93 Nasal Cannula 05/14/24 09:05 62 16 106/51 L 92 Nasal Cannula 05/14/24 08:55 36.4 C L 64 16 104/53 L 93 Nasal Cannula 05/14/24 08:45 65 14 110/51 L 95 Room Air 05/14/24 08:35 68 18 115/53 L 95 Oxymask 05/14/24 08:25 69 16 103/55 L 96 Oxymask 05/14/24 08:17 36.0 C L 83 18 109/53 L 93 Oxymask 05/14/24 05:27 36.5 C 84 20 143/60 H 97 Room Air O2 Flow Rate 05/14/24 10:38 2 05/14/24 10:08 2 05/14/24 09:40 2 05/14/24 09:40 2 05/14/24 09:05 2 05/14/24 08:55 2 05/14/24 08:45 05/14/24 08:35 4 05/14/24 08:25 6 05/14/24 08:17 6 05/14/24 05:27 Pain Intensity Left Hip: Pain Intensity: 0 Transfer of Care Handoff Completed per policy Notes Mental Status: alert / awake / arousable Patient Amnestic to Procedure: Yes Nausea / Vomiting: adequately controlled Pain: adequately controlled Airway Patency, RR, SpO2: stable & adequate BP & HR: stable & adequate Hydration State: stable & adequate Neuraxial Anesthesia: was administered and sensory block is resolving Anesthetic Complications: no major complications apparent
[2024-05-14] MEDS: ASPIRIN 81 MG ECTAB PO SCH (12:22)
[2024-05-14] MEDS: DOCUSATE SODIUM 100 MG CAP PO SCH (12:23)
[2024-05-14] MEDS: MULTIVITAMIN TAB PO SCH (12:23)
[2024-05-14] MEDS: MONTELUKAST SODIUM 10 MG TABLET PO SCH (22:14)
[2024-05-14] MEDS: VERAPAMIL HCL 120 MG TABCR PO SCH (22:14)
[2024-05-14] MEDS: PRAVASTATIN SOD 20 MG TAB PO SCH (22:14)
[2024-05-14] MEDS: SENNA 8.6 MG TAB PO SCH (22:15)
[2024-05-14] MEDS: VERAPAMIL HCL 180 MG TABCR PO SCH (22:16)
--- NOTE | 2024-05-15 07:06 | Orthopedic Progress Note ---
Date of Service May 15, 2024 Assessment & Plan (1) Status post left hip replacement: Overall she is doing very well. She is not having much pain in the left hip. She will be seen by physical therapy today for ambulation and range of motion exercises. She is on aspirin for DVT prophylaxis. She can be discharged home later today. She will follow-up orthopedics in 2 weeks. Glynn Gaspar was seen and examined at bedside this morning. Overall she is doing very well. She is not having much pain in the left hip. She has been up and ambulating to the bathroom. She has no complaints.. Review of Systems All systems reviewed & are unremarkable except as noted in HPI & below. Physical Exam On physical examination left hip, the dressing is clean and dry. Her leg is out full extension. She has active dorsiflexion plantarflexion of her left ankle.. Results & Data Results & Data Laboratory Results . Diagnostic Findings Postoperative x-rays of the left hip show the prosthesis to be in anatomic alignment without any evidence of fracture complication, or loosening.. PG Care Time/CCT Total # of Minutes Spent Total Time Spent with Patient: Total time spent is greater than 50% in coordination of care (as documented) at patient's floor/unit and/or counseling patient: Coding Level of Care Code 94997 Post Operative Follow-Up Diagnoses Status post left hip replacement Z96.642
--- NOTE | 2024-05-15 07:07 | Discharge Summary ---
Date of Service May 15, 2024 Admission HPI (Per Admitting) Chasity is a pleasant 73-year-old female who I saw a year ago for a right hamstring strain. She is better from that. Unfortunately, she has been dealing with chronic increasing left hip pain. She has pain when she is up and standing. She has pain getting in and out of a car. All of her pain is located in her groin and over the lateral aspect of her hip. X-rays and clinical examination been diagnostic for advanced osteoarthritis of the left hip. After failing conservative treatment, she has elected proceed with a left total hip arthroplasty. Admission Exam (Per Admitting) On physical examination of the left hip, she has decreased range of motion. She has pain with forced internal and external rotation. Most of her pain is located in the groin.. Principal Diagnosis Same as "Discharge Diagnosis" noted below under Discharge Instructions. Discharge Exam On physical examination left hip, the dressing is clean and dry. Her leg is out full extension. She has active dorsiflexion plantarflexion of her left ankle.. Discharge Data Procedures Performed Operation Date: 05/14/24 07:00 Actual Procedures p Left Anterior Total Hip Arthroplasty(Left) - Pardeep Haney DO Ordered Studies 05/14/24 07:00 FL hip LT 1V Routine Hospital Course (1) Status post left hip replacement: On May 14, 2024 Chasity arrived at [facility] and underwent a left hip replacement without complication. She had a spinal anesthetic. Postoperatively she was started on aspirin for DVT prophylaxis and transferred to the general orthopedic floors. Her hospital course was uneventful. On postop day #1, her vital signs were stable and her pain was well-controlled. She was able to participate well with physical therapy doing ambulation and range of motion exercises. She was then discharged home. She will follow-up with orthopedics in 2 weeks. PG Care Time/CCT Total # of Minutes Spent Total Time Spent with Patient: Total time spent is greater than 50% in coordination of care (as documented) at patient's floor/unit and/or counseling patient: Discharge Plan Discharge Items Patient Disposition: Home - Self-Care Reason For Visit: Left Hip Degenerative Joint Disease Discharge Diagnosis: Left hip replacement Activity: Per Instructions section Non-emergency contact: Surgeon Call non-emergency contact if: your wound has increased redness and your wound has increased drainage Follow-up/Referrals: Manoj Burgess D.O. [Primary Care Provider] - Diet: Regular Addtl Attending Provider Instructions: Activity and Therapy Recommendations: * If you are using [facility] then therapy will be provided at your home until they feel you have accomplished all of your goals. * If you are using [facility] then Physical Therapy will be provided until they feel you are ready to start Outpatient Physical Therapy. * If you are not using home therapy then Outpatient Physical Therapy should start about 3-5 days from your day of surgery. Therapy will last about 6-10 weeks * You were shown a series of exercises in the hospital. Do these exercises three times each day including the exercises you were shown in physical therapy. * Get up and walk several times each day.~ For the first four weeks, try not to stand or walk for more than one hour at a time. If you do stand or walk for more than one hour, you will not hurt anything, but your leg will likely swell.~~ * As you feel comfortable, you may change from the walker or crutches to a cane and~then to independent walking. Medications: * Narcotic You will likely be sent home from the hospital with a prescription for the narcotic pain medication that worked best throughout your stay. * Cefadroxil -take the antibiotic twice a day for 10 days to help prevent infection. * Aspirin Most patients will be required to take Aspirin 81mg twice a day for 6 weeks after surgery. This is obtained [id number] and a prescription is not necessary. * Other medications may be prescribed for specific circumstances. If you have any questions, please call the office at . * Resume previous home medications unless otherwise instructed TEDs/Elastic Stockings: The white elastic stockings help limit swelling and prevent blood clots from forming in your legs. The more you wear them, the more they work. Wear them for six weeks. Dressing Care: Leave the Silverlon dressing in place for 7 days. After 7 days you may remove the dressing. If the incision is not draining then you may leave the russel open to air. If there is a little bit of drainage or if the russel are getting stuck on your clothing then cover the incision with a dry dressing. The russel will be removed at your 2 week follow-up appointment. Showering: You may shower with the Silverlon dressing in place. Do not let the shower spray hit the dressing directly. Pat the Silverlon dressing dry. If the dressing becomes wet underneath, then simply remove the dressing. Keep the incision dry until you are 7 days out from the day of surgery. After 7 days you may remove the Silverlon dressing and shower with the russel exposed. Let soapy water run over the russel and pat them dry. Do not scrub or soak the incision. Things To Watch For: * Drainage from the incision site that occurs more than one week after your surgery. * Increased redness at the incision site. * Fever above 102 degrees Fahrenheit. * Unusual chest pain or shortness of breath. * Call [facility] at with any of the above problems Follow-Up Visit: Follow-up with Dr. Haney's PA (Pardeep Welsh) 2-3 weeks after your day of surgery. He will remove your russel and answer any questions. If you have any additional questions or concerns, Dr Haney is usually in the office at the same time and will be available An appointment was probably scheduled when you signed-up for surgery in the office. If you have any questions call Office Instructions: More detailed instructions as well as Frequently Asked Questions were provided in a folder by our office when you signed-up for surgery. Please review these instructions when you get home. If you have any further questions or concerns, please feel free to call the office at [phone] Pending Studies at Discharge: No Stand-Alone Forms: [facility], Smoking Cessation Medications and DC Order Prescriptions: New oxycodone 5 mg Tablet 5 mg PO Q4H PRN (Reason: pain) Qty: 30 0RF cefadroxil 500 mg capsule 500 mg PO BID 10 Days Qty: 20 0RF Continued biotin 5,000 mcg tablet,disintegrating 5,000 mcg PO DAILY omega-3 fatty acids [Fish Oil] 1 tab PO DAILY fluticasone propionate 50 mcg/actuation spray,suspension 2 spray intranasal QAM Rx Instructions: administer into each nostril milk thistle 1 tab PO DAILY montelukast [Singulair] 10 mg tablet 10 mg PO QPM omeprazole 20 mg capsule,delayed release(DR/EC) 20 mg PO HS pravastatin 20 mg tablet 20 mg PO HS folic acid 800 mcg tablet 0.8 mg PO DAILY magnesium 250 mg tablet 250 mg PO DAILY nitroglycerin 0.4 mg tablet, sublingual 0.4 mg sublingual Q5M PRN (Reason: chest pain) Qty: 20 1RF Rx Instructions: do not exceed 3 doses per episode fluticasone propion-salmeterol [Wixela Inhub] 250-50 mcg/dose Blister With D evice 1 inh INHALATION QAM verapamil 180 mg capsule,ext rel. pellets 24 hr 360 mg PO HS verapamil 120 mg capsule,ext rel. pellets 24 hr 120 mg PO HS Rx Instructions: Take 1 tablet by mouth every day (along with 2 Verapamil ER 180 mg tablets) for a total daily dose of 480 mg. Changed aspirin 81 mg tablet,delayed release (DR/EC) 81 mg PO BID 42 Days Qty: 30 6RF Discharge Orders: Discharge Order (Routine); Ordered 05/15/24 Ordered By: Pardeep Haney Admission Data Admit Date/Time: 05/14/24 08:18 Attending Provider: Pardeep Haney Admit Provider: Pardeep Haney Primary Care Provider: Manoj Burgess
[2024-05-15] MEDS: dexAMETHasone 4 MG TAB PO SCH (07:21)
[2024-05-15] MEDS: FLUTICASONE/VILANTEROL 100/25MCG 14 PUFFS/INHALER INH SCH (07:22)
== END 2024-05-15 10:33 | disposition home or self-care (01) ==
LOC: ASU 05:03 → 3N 05:03